=== PATIENT | female | born 1970 | race Hispanic/Latino ===

== ENCOUNTER 2022-04-24 20:09 | Emergency (ER) | payer BC ==
[~2022-04-24] VITALS: Ht 165.1 cm; Wt 79.4 kg
[2022-04-24 20:44] VITALS: BP 138/62
== END 2022-04-24 22:18 | disposition home or self-care (01) ==
LOC: EDH 20:09
DX: M79.662 Pain in left lower leg (principal); M54.50 Low back pain, unspecified